=== PATIENT | male | born 1935 | race Caucasian/White ===

== ENCOUNTER 2016-05-01 14:42 | Outpatient (CLI) | payer OTHER ==
--- NOTE | 2016-05-01 15:42 | DIAGNOSTIC IMAGING REPORT ---
PROCEDURE: CT SINUS/FACIAL BONES W/O CONT CLINICAL INDICATION: SINUSITIS TECHNIQUE: Noncontrast axial images with coronal reformations. COMPARISON: None. FINDINGS: Bilateral small antral windows. Minor left maxillary, mild right frontal, moderate left frontal and mild ethmoid sinus disease. Remaining paranasal sinuses are clear. No air-fluid levels. Ostiomeatal units are patent. Mild right nasal septal deviation. IMPRESSION: 1. Small bilateral antral windows 2. Minor left maxillary, mild right frontal, ethmoid and moderate left frontal sinus disease 3. Mild right septal deviation. All CT scans at this facility use dose modulation, iterative reconstruction, and/or weight-based dosing when appropriate to reduce radiation dose to as low as reasonably achievable.
== END 2016-05-01 23:00 ==
LOC: CT SRH 14:42
DX: J32.0 Chronic maxillary sinusitis (principal); J32.1 Chronic frontal sinusitis; J32.2 Chronic ethmoidal sinusitis

== ENCOUNTER 2016-05-26 10:02 | Outpatient (CLI) | payer OTHER ==
--- NOTE | 2016-05-26 14:17 | DIAGNOSTIC IMAGING REPORT ---
PROCEDURE: 2-D M-mode echo Doppler CLINICAL INDICATION: Shortness of breath, CAD, TECHNIQUE: Standard 2-D M-mode echo Doppler technique employed COMPARISON: No prior FINDINGS: The aortic valve exhibits mild sclerosis without stenosis or insufficiency. The mitral, tricuspid and pulmonic valves are all normal RVSP was 15. LVH is present LV EF is 60% with normal contraction left and right atrial dimension is normal RV size function and pressure is normal. No abnormalities of the aortic order pericardium are appreciated IMPRESSION: Normal function of all cardiac valves Aortic sclerosis no stenosis LVH Ventricular ejection fraction 60% with normal contraction
== END 2016-05-26 23:00 ==
LOC: US SRH 10:02
DX: R06.00 Dyspnea, unspecified (principal); I25.10 Atherosclerotic heart disease of native coronary artery without angina pectoris

== ENCOUNTER 2016-05-28 08:38 | Outpatient (CLI) | payer OTHER | END 2016-05-28 23:00 | disposition home or self-care (01) | LOC: RT SRH 08:38 | DX: J44.9 Chronic obstructive pulmonary disease, unspecified (principal) ==

== ENCOUNTER 2016-06-04 11:54 | Outpatient (CLI) | payer OTHER ==
--- NOTE | 2016-06-16 16:39 | DIAGNOSTIC IMAGING REPORT ---
PROCEDURE: NM CARDIAC STRESS TEST INDICATION: Shortness of breath TECHNIQUE: 10 mCi technetium 99m labeled sestamibi used for rest imaging and 30 mCi for stress imaging. This was a pharmacologic study. Please see separately dictated stress test report for details of that portion of the study. COMPARISON: None FINDINGS: SPECT imaging shows a small and mild distal inferior perfusion defect. However there is some diaphragmatic uptake adjacent to the inferior wall making interpretation of this region difficult. Some stress score is only 3. This could also represent artifact. Gated SPECT imaging shows ejection fraction 58%, end-diastolic volume 94 ml, end-systolic volume 39 ml and normal wall thickening wall motion. IMPRESSION: Small area of mild distal inferior wall ischemia versus diaphragmatic attenuation artifact. Normal ejection fraction, left ventricular size, wall thickening and wall motion. This is a mildly abnormal study as reviewed above. If the patient has no prior diagnosis of coronary artery disease and no other explanation for shortness of breath, I consider cardiology consultation.
== END 2016-06-04 23:00 ==
LOC: NM SRH 11:54
PROC: 4A02XM4 Measurement of Cardiac Total Activity, External Approach (ICD-10-PCS; principal; 2016-06-04)
DX: R06.02 Shortness of breath (principal)

== ENCOUNTER 2016-07-07 12:06 | Outpatient (CLI) | payer OTHER ==
--- NOTE | 2016-07-07 12:58 | DIAGNOSTIC IMAGING REPORT ---
PROCEDURE: XR CHEST 2 VIEW INDICATION: SOB TECHNIQUE: PA and lateral views. COMPARISON: None. FINDINGS: Lungs are clear. Heart and mediastinum are normal. Thorax is normal. IMPRESSION: 1. Negative chest.
== END 2016-07-07 23:00 ==
LOC: XR SRH 12:06
DX: R06.02 Shortness of breath (principal)